=== PATIENT | female | born 1980 ===

== ENCOUNTER 2018-03-11 00:45 | Emergency (ER) | payer OTHER ==
[2018-03-11 00:45] VITALS: BMI 23.1
[2018-03-11 01:10] VITALS: PULSE 99; TEMP 98; O2SAT 100
[2018-03-11 01:13] VITALS: BP 155/113
--- NOTE | 2018-03-11 01:36 | ED PDOC ---
HPI: Chest Pain Time Seen by Provider: 03/11/18 01:17 Chief Complaint (Nursing): Chest Pain Chief Complaint (Provider): Chest Pain History Per: Patient History/Exam Limitations: no limitations Onset/Duration Of Symptoms: Hrs (x2) Current Symptoms Are (Timing): Still Present Additional Complaint(s): 37 year old female, 38 weeks () presents to the ED for chest pain which is chronic and consistent with her pericarditis for the last two hours. Patient reports usually taking Motrin for the pain, but was told by [facility] she could not take Motrin anymore. Additionally, pt is complaining of having abdominal cramping every five minutes for the last hour. PMD: Pt follows up at [facility] for her cardiology issues Past Medical History Reviewed: Historical Data Vital Signs: Last Vital Signs Temp 98 F 03/11/18 01:07 Pulse 99 H 03/11/18 01:07 Resp 20 03/11/18 01:07 BP 155/113 H 03/11/18 01:13 Pulse Ox 100 03/11/18 01:07 - Medical History PMH: Pericarditis Denies: Diabetes, Hepatitis, HIV, HTN, Seizures, Sexually Transmitted Disease Other PMH: Lupus - Surgical History Surgical History: No Surg Hx - Family History Family History: States: Unknown Family Hx - Social History Current smoker - smoking cessation education provided: No Alcohol: None Drugs: Denies - Immunization History Hx Tetanus Toxoid Vaccination: Yes Hx Influenza Vaccination: Yes Hx Pneumococcal Vaccination: Yes - Home Medications Home Medications: Ambulatory Orders Medication Instructions Recorded No Known Home Med 01/13/17 - Allergies Allergies/Adverse Reactions: Allergies Allergy/AdvReac Type Severity Reaction Status Date / Time No Known Allergies Allergy Verified 03/11/18 01:07 Review of Systems ROS Statement: Except As Marked, All Systems Reviewed And Found Negative Cardiovascular: Positive for: Chest Pain (chronic, consistent with her pericarditis) Gastrointestinal: Positive for: Abdominal Pain (cramping) Physical Exam - Reviewed Nursing Documentation Reviewed: Yes Vital Signs Reviewed: Yes - Physical Exam Appears: Positive for: No Acute Distress Head Exam: Positive for: ATRAUMATIC, NORMOCEPHALIC Skin: Positive for: Normal Color, Warm, Dry Eye Exam: Positive for: Normal appearance ENT: Positive for: Normal ENT Inspection Neck: Positive for: Normal, Painless ROM, Supple Cardiovascular/Chest: Positive for: Regular Rate, Rhythm Respiratory: Positive for: Normal Breath Sounds. Negative for: Respiratory Distress Gastrointestinal/Abdominal: Positive for: Normal Exam, Other (gravid). Negative for: Tenderness Back: Positive for: Normal Inspection Extremity: Positive for: Normal ROM Neurologic/Psych: Positive for: Alert, Oriented (x3), Mood/Affect (odd) - Laboratory Results Result Diagrams: 03/11/18 01:34 03/11/18 01:34 - ECG O2 Sat by Pulse Oximetry: 100 (RA) Pulse Ox Interpretation: Normal Medical Decision Making Medical Decision Making: Time: 124 Initial Impression: pericarditis, abdominal pain with Initial Plan: --CMP --Trop I --CBC with differential --EKG EKG, read by provider: NSR at 86 bpm Consistent with pericarditis 220 Patient medically cleared for to be sent up to Dr. Salcedo, OB on-call who accepted patient. While on the phone, patient told RN she did not want to go upstairs and wants to leave AMA. Scribe Attestation: Documented by Marycruz Schultz, acting as a scribe for Billy Humphrey MD. Provider Scribe Attestation: All medical record entries made by the Scribe were at my direction and personally dictated by me. I have reviewed the chart and agree that the record accurately reflects my personal performance of the history, physical exam, medical decision making, and the department course for this patient. I have also personally directed, reviewed, and agree with the discharge instructions and disposition. Disposition - Disposition Forms: [employer] ([place])
[2018-03-11 01:43] LABS: BASO # 0.1 K/uL (0.0-0.2); BASO % 1.2 % (0.0-2.0); EOS # 0.1 K/uL (0.0-0.7); EOS % 0.6 % (0.0-4.0); HEMOGLOBIN 8.8 g/dL (12.0-16.0); LYMPH # 2.4 K/uL (1.0-4.3); LYMPH % 25.5 % (20.0-40.0); MEAN CORPUSCULAR HEMOGLOBIN 23.7 pg (27.0-31.0); MEAN CORPUSCULAR HGB CONC 32.5 g/dL (33.0-37.0); MEAN PLATELET VOLUME 9.8 fl (7.2-11.7); MONO # 0.8 K/uL (0.0-0.8); MONO % 8.2 % (0.0-10.0); NEUT % 64.5 % (50.0-75.0); NRBC % 0.1 % (0.0-0.0); RBC 3.7 Mil/uL (3.80-5.20); WHITE BLOOD COUNT 9.4 K/uL (4.8-10.8)
[2018-03-11 02:13] LABS: ALBUMIN 3.3 g/dL (3.5-5.0); ALT/SGPT 21 U/L (9-52); AST/SGOT 25 U/L (14-36); BLOOD UREA NITROGEN 17 mg/dl (7-17); CALCIUM 9.4 mg/dL (8.4-10.2); GFR NON-AFRICAN AMERICAN > 60
[2018-03-11 02:45] VITALS: RESP 22
== END 2018-03-11 02:31 | disposition left against medical advice (07) ==
LOC: H.ER 00:45
DX: R07.89 Other chest pain (principal); Z33.1 Pregnant state, incidental